=== PATIENT | female | born 1980 | race Caucasian/White ===

== ENCOUNTER 2017-12-17 16:14 | Inpatient (IN) ==
[2017-12-17] MEDS ORDERED: CLINDAMYCIN INJ 600 MG in PREMIX 1 EACH IV STA (17:22)
[2017-12-17 17:48] LABS: Basophils % 0.3 % (0.0-0.8); Eosinophils # 0.2 10*3/uL (0.0-0.87); Hematocrit 21.3 VOL% (35.7-47.0); Immature Granulocytes % 0.4 %; Immature Granulocytes Absolute 0.04 #; Lymphocytes # 2.3 10*3/uL (1.4-4.0); Mean Corpuscular HGB Conc 27.2 GM/DL (32-36); Mean Corpuscular Hemoglobin 18 PG (27-34); Mean Corpuscular Volume 64.4 FL (87-102); Mean Platelet Volume 10.2 FL (9.6-12.0); Monocytes # 0.7 10*3/uL (0.11-0.8); Monocytes % 7.3 % (1.7-12.7); Platelet Count 312 T/CUMM (130-400); Red Blood Count 3.31 MC/CUMM (3.8-5.5); Red Cell Distribution Width 17.7 % (9.3-17.3); White Blood Count 9.3 T/CUMM (4-12)
[2017-12-17 17:56] LABS: Hemoglobin 5.8 GM/DL (12.0-16.0)
[2017-12-17 18:09] LABS: Alanine Aminotransferase 19 U/L (13-56); Albumin 2.8 G/DL (3.4-5.0); Alkaline Phosphatase 120 U/L (45-117); Aspartate Amino Transferase 20 U/L (0-37); Bilirubin,Total < 0.39 MG/DL (0.2-1.0); Blood Urea Nitrogen 8 MG/DL (7-18); Calcium 8.4 MG/DL (8.5-10.1); Glucose 106 MG/DL (74-106); Osmolality,Calculated 272.7 MOS/KG (273-304); Potassium 3.1 MMOL/L (3.5-5.1); Sodium 138 MMOL/L (136-145); Total Protein 7.1 G/DL (6.4-8.3)
[2017-12-17] MEDS ORDERED: SODIUM CHLORIDE 0.9% 1,000 ML IV PRN ×3 (18:17→18:57)
[2017-12-17] MEDS ORDERED: ACETAMINOPHEN 325 MG TABLET PO PRN (18:26)
[2017-12-17] MEDS ORDERED: ONDANSETRON 4 MG/2 ML VIAL IV PRN (18:26)
[2017-12-17] MEDS: SODIUM CHLORIDE 0.9% 1,000 ML IV SCH (18:44)
[2017-12-17] MEDS ORDERED: FUROSEMIDE 20 MG TABLET PO PRN (18:59)
[2017-12-17] MEDS ORDERED: diphenhydrAMINE CAP 25 MG CAPSULE PO PRN (18:59)
[2017-12-17 19:56] LABS: Lactic Acid 1.4 MMOL/L (0.4-2.0)
[2017-12-17] MEDS ORDERED: KETOROLAC 15 MG/1 ML VIAL IV PRN (20:23)
[2017-12-17 20:26] LABS: Basophils % 0.3 % (0.0-0.8); Eosinophils # 0.2 10*3/uL (0.0-0.87); Eosinophils % 1.7 % (0.00-10.9); Hematocrit 20.5 VOL% (35.7-47.0); Immature Granulocytes % 0.7 %; Immature Granulocytes Absolute 0.06 #; Lymphocytes # 2.3 10*3/uL (1.4-4.0); Lymphocytes % 25.9 % (21.3-54.2); Mean Corpuscular HGB Conc 26.8 GM/DL (32-36); Mean Corpuscular Hemoglobin 18 PG (27-34); Mean Corpuscular Volume 65.1 FL (87-102); Mean Platelet Volume 10.7 FL (9.6-12.0); Monocytes # 0.8 10*3/uL (0.11-0.8); Monocytes % 8.3 % (1.7-12.7); Neutrophils # 5.7 10*3/uL (1.4-7.4); Neutrophils % 63.1 % (38.7-73.9); Platelet Count 288 T/CUMM (130-400); Red Blood Count 3.15 MC/CUMM (3.8-5.5); Red Cell Distribution Width 17.5 % (9.3-17.3)
[2017-12-17 20:39] LABS: Hemoglobin 5.5 GM/DL (12.0-16.0)
[2017-12-17 21:04] LABS: Folate 4.3 NG/ML (5.4-24.0); Vitamin B12 432 PG/ML (211-911)
[2017-12-17] MEDS: CITALOPRAM 40 MG TABLET PO SCH (21:31)
[2017-12-17] MEDS: CARVEDILOL 6.25 MG TABLET PO SCH (21:32)
[2017-12-17] MEDS: traZODone 50 MG TABLET PO SCH (21:32)
[2017-12-17] MEDS: PANTOPRAZOLE 40 MG VIAL IV SCH (21:32)
[2017-12-17 21:40] LABS: Sedimentation Rate-Westergren 66 MM/HR (0-20)
[2017-12-18 04:47] LABS: Apearance,Urine CLOUDY (Clear); Bacteria,Urine Occasional /HPF (Few); Bilirubin,Urine Negative (Negative); Blood, Urine Negative (Negative); Glucose,Urine (UA) Negative (Negative); Ketones,Urine Negative (Negative); Mucus,Urine Many /LPF (Occasional); Nitrite,Urine Negative (Negative); Protein,Urine 30 MG/DL; RBC,Urine 11 /HPF (0-4); Squamous Epithelial Cell,Urine Many /HPF (0-10); WBC,Urine 115 /HPF (0-6)
[2017-12-18 04:48] LABS: Urine Color Dark yellow (Yellow)
[2017-12-18 07:01] LABS: Barbiturates Screen,Urine Negative (Negative); Benzodiazepines Screen,Urine Positive (Negative); Cannabinoid Screen,Urine Negative (Negative); Opiate Screen,Urine Negative (Negative); Phencyclidine Screen,Urine Negative (Negative)
[2017-12-18] MEDS ORDERED: BUPRENORPHINE HCL 8 MG SL SCH (10:00)
[2017-12-18 10:21] LABS: Hemoglobin A1 (Alkaline) 97.2 % (96.5-98.5); Hemoglobin A2 (Alkaline) 2.8 % (1.5-3.5)
[2017-12-18 10:34] LABS: Hematocrit 25.2 VOL% (35.7-47.0)
[2017-12-18 10:51] LABS: Hemoglobin 7.5 GM/DL (12.0-16.0)
[2017-12-18 10:56] LABS: Calcium 8.1 MG/DL (8.5-10.1); Osmolality,Calculated 278.3 MOS/KG (273-304); Potassium 3.3 MMOL/L (3.5-5.1)
[2017-12-18] MEDS ORDERED: POTASSIUM CHLORIDE RIDER 10 MEQ in PREMIX 1 EACH IV PRN (11:06)
[2017-12-18] MEDS: SODIUM CHLORIDE 0.9% 1,000 ML IV SCH ×2 (11:27→22:13)
[2017-12-18] MEDS: CARVEDILOL 6.25 MG TABLET PO SCH ×2 (11:38→17:26)
[2017-12-18] MEDS: PANTOPRAZOLE 40 MG VIAL IV SCH ×2 (11:39→21:14)
[2017-12-18] MEDS: POTASSIUM CHLORIDE 10 MEQ TABLET PO SCH ×2 (11:39→22:13)
[2017-12-18] MEDS: CLINDAMYCIN INJ 600 MG in PREMIX 1 EACH IV SCH ×2 (11:39→22:13)
[2017-12-18] MEDS ORDERED: LIDOCAINE 1% 50 ML VIAL ONE (12:35)
[2017-12-18] MEDS ORDERED: ONDANSETRON 4 MG/2 ML VIAL ONE (14:05)
[2017-12-18] MEDS ORDERED: SEVOFLURANE 1 UNIT/15 MINUTE INH ONE (14:05)
[2017-12-18] MEDS ORDERED: MIDAZOLAM 2 MG/2 ML VIAL ONE (14:05)
[2017-12-18] MEDS ORDERED: PROPOFOL 200 MG/20 ML VIAL IV ONE (14:05)
[2017-12-18] MEDS ORDERED: ACETAMINOPHEN 1,000 MG/100 ML VIAL IV ONE (14:06)
[2017-12-18] MEDS ORDERED: KETOROLAC 30 MG/1 ML VIAL ONE (14:06)
[2017-12-18 15:06] LABS: Hemoglobin 7.6 GM/DL (12.0-16.0)
[2017-12-18] MEDS ORDERED: SODIUM CHLORIDE 0.9% 1,000 ML IV PRN (15:21)
[2017-12-18] MEDS ORDERED: ACETAMINOPHEN/CODEINE 300-30 MG TABLET PO PRN (15:40)
[2017-12-18 15:53] LABS: % Iron Saturation 3.5 % (18-50); Ferritin 15.7 ng/ml (8-252)
[2017-12-18] MEDS: POTASSIUM CHLORIDE 20 MEQ TABLET PO PRN ×2 (17:26→21:14)
[2017-12-18] MEDS: traZODone 50 MG TABLET PO SCH (21:14)
[2017-12-18] MEDS: CITALOPRAM 40 MG TABLET PO SCH (21:14)
[2017-12-18] MEDS: KETOROLAC 15 MG/1 ML VIAL IV SCH (21:15)
[2017-12-19] MEDS: CLINDAMYCIN INJ 600 MG in PREMIX 1 EACH IV SCH ×2 (02:05→08:22)
[2017-12-19] MEDS: KETOROLAC 15 MG/1 ML VIAL IV SCH ×2 (02:05→08:21)
[2017-12-19] MEDS: SODIUM CHLORIDE 0.9% 1,000 ML IV SCH (05:47)
[2017-12-19 07:49] LABS: Basophils % 0.5 % (0.0-0.8); Eosinophils # 0.1 10*3/uL (0.0-0.87); Eosinophils % 1.8 % (0.00-10.9); Hematocrit 29.2 VOL% (35.7-47.0); Hemoglobin 8.5 GM/DL (12.0-16.0); Immature Granulocytes % 0.3 %; Immature Granulocytes Absolute 0.02 #; Lymphocytes # 2.2 10*3/uL (1.4-4.0); Lymphocytes % 36.4 % (21.3-54.2); Mean Corpuscular HGB Conc 29.1 GM/DL (32-36); Mean Corpuscular Hemoglobin 21 PG (27-34); Mean Corpuscular Volume 72.1 FL (87-102); Monocytes # 0.5 10*3/uL (0.11-0.8); Monocytes % 7.7 % (1.7-12.7); Neutrophils # 3.2 10*3/uL (1.4-7.4); Neutrophils % 53.3 % (38.7-73.9); Platelet Count 246 T/CUMM (130-400); Red Blood Count 4.05 MC/CUMM (3.8-5.5); Red Cell Distribution Width 21.6 % (9.3-17.3)
[2017-12-19 08:21] LABS: Calcium 7.9 MG/DL (8.5-10.1); Osmolality,Calculated 283.8 MOS/KG (273-304); Potassium 3.9 MMOL/L (3.5-5.1)
[2017-12-19] MEDS: PANTOPRAZOLE 40 MG VIAL IV SCH (08:21)
[2017-12-19] MEDS: CARVEDILOL 6.25 MG TABLET PO SCH (08:23)
[2017-12-19] MEDS: POTASSIUM CHLORIDE 10 MEQ TABLET PO SCH (08:23)
[2017-12-19 12:10] VITALS: BP 133/64
== END 2017-12-19 13:10 | disposition home or self-care (01) | DRG 571 ==
LOC: N.ED 16:14 → N.EDINP 18:26 → N.5E 20:01
PROVIDERS: ADMIT Internal Medicine; ATTEND Internal Medicine